=== PATIENT | male | born 1950 | race Caucasian/White ===

== ENCOUNTER 2019-11-21 13:42 | Emergency (ER) | payer MEDICARE, OTHER ==
[2019-11-21] MEDS ORDERED: Ondansetron 4 MG Tab.DIS PO PRN (14:03)
[2019-11-21] MEDS ORDERED: Meclizine 25 MG Tab PO ONE (14:03)
[2019-11-21 15:48] VITALS: BP 145/59; PULSE 72
--- NOTE | 2019-11-21 15:48 | EDM.PDOC ---
ED HPI GENERAL MEDICAL PROBLEM - General Stated Complaint: DIZZINES Time Seen by Provider: 11/21/19 14:35 Source of Information: Reports: Patient History Limitations: Reports: No Limitations - History of Present Illness INITIAL COMMENTS - FREE TEXT/NARRATIVE: Patient presented to the ED because of dizziness, nausea which he developed after mowing his lawn for almost 2 hours. He said he was drenching in sweats when he felt dizzy. Denies any palpitations, chest pain or headache. There is no fever or chills. - Related Data Allergies Allergy/AdvReac Type Severity Reaction Status Date / Time No Known Allergies Allergy Verified 11/21/19 15:46 Home Meds: Home Meds metFORMIN [Glucophage] 1 tab PO BID 12/15/14 [History] sitaGLIPtin Phosphate [Januvia] 1 tab PO DAILY 12/15/14 [History] Lisinopril/Hydrochlorothiazide [Lisinopril-Hctz 10-12.5 mg Tab] 1 tab PO DAILY 11/21/19 [History] Social & Family History - Living Situation & Occupation Living situation: Reports: Single Occupation: Employed ED ROS GENERAL - Review of Systems Review Of Systems: See Below Constitutional: Reports: No Symptoms HEENT: Reports: No Symptoms Respiratory: Reports: No Symptoms Cardiovascular: Reports: No Symptoms Endocrine: Reports: No Symptoms GI/Abdominal: Reports: No Symptoms : Reports: No Symptoms Musculoskeletal: Reports: No Symptoms Skin: Reports: No Symptoms Neurological: Reports: Dizziness ED EXAM, GENERAL - Physical Exam Exam: See Below Exam Limited By: No Limitations General Appearance: Alert, No Apparent Distress Ears: Normal External Exam, Normal Canal, Hearing Grossly Normal Nose: Normal Inspection, Normal Mucosa, No Blood Throat/Mouth: Normal Inspection, Normal Lips, Normal Teeth, Normal Gums Head: Atraumatic, Normocephalic Neck: Normal Inspection, Supple, Non-Tender, Full Range of Motion Respiratory/Chest: No Respiratory Distress, Lungs Clear, Normal Breath Sounds Cardiovascular: Normal Peripheral Pulses, Regular Rate, Rhythm, No Edema, No Gallop GI/Abdominal: Normal Bowel Sounds, Soft, Non-Tender, No Organomegaly Rectal (Males) Exam: Prostate Nodule Back Exam: Normal Inspection Extremities: Normal Inspection, Normal Range of Motion Neurological: Alert, Oriented, CN II-XII Intact, Normal Cognition, Normal Gait, Normal Reflexes, No Motor/Sensory Deficits Course - Vital Signs Text/Narrative:: Labs reviewed with patient Oral hydration Zofran ODT 4 mg po x1 Meclizine 25 mg po x1 Last Recorded V/S: Last Vital Signs Temp 36.6 C 11/21/19 14:30 Pulse 72 11/21/19 14:30 Resp 18 11/21/19 14:30 BP 145/59 H 11/21/19 14:30 Pulse Ox 96 11/21/19 14:30 - Orders/Labs/Meds Orders: Active Orders 24 hr Category Date Time Status EKG 12 Lead [EK] Routine Ther 11/21/19 14:03 Ordered Labs: Laboratory Tests 11/21/19 11/21/19 Range/Units 14:50 14:50 WBC 16.7 H (4.5-12.0) X10-3/uL RBC 4.96 (4.30-5.75) x10(6)uL Hgb 14.9 (13.5-17.8) g/dL Hct 44.5 (30.0-51.3) % MCV 89.8 (80-96) fL MCH 30.0 (27.7-33.6) pg MCHC 33.4 (32.2-35.4) g/dL RDW 12.5 (11.5-15.5) % Plt Count 241 (125-369) X10(3)uL MPV 8.6 (7.4-10.4) fL Add Manual Diff Yes Neutrophils % (Manual) 91 H (46-82) % Band Neutrophils % 2 (0-6) % Lymphocytes % (Manual) 5 L (13-37) % Monocytes % (Manual) 2 L (4-12) % Sodium 137 (135-145) mmol/L Potassium 4.0 (3.5-5.3) mmol/L Chloride 100 (100-110) mmol/L Carbon Dioxide 30 (21-32) mmol/L BUN 18 (7-18) mg/dL Creatinine 1.0 (0.70-1.30) mg/dL Est Cr Clr Drug Dosing TNP Estimated GFR (MDRD) > 60 (>60) BUN/Creatinine Ratio 18.0 (9-20) Glucose 174 H (80-116) mg/dL Calcium 9.8 (8.6-10.2) mg/dL Meds: Medications Discontinued Medications Generic Name Dose Route Start Last Admin Trade Name Freq PRN Reason Stop Dose Admin Meclizine HCl 25 mg 11/21/19 14:03 11/21/19 14:23 Antivert PO 11/21/19 14:04 25 mg ONETIME ONE Administration Ondansetron HCl 4 mg 11/21/19 14:03 11/21/19 14:23 Zofran Odt PO 4 mg ONETIME PRN Administration Nausea Departure - Departure Time of Disposition: 15:50 Disposition: Home, Self-Care 01 Condition: Good Clinical Impression: Heat exhaustion - Discharge Information Instructions: Preventing Heat Exhaustion, Adult Referrals: Nitish Duran MD [Primary Care Provider] - Forms: ED Department Discharge Additional Instructions: Please read discharge instructions on heat exhaustion Increase oral fluids at least 3-4 L a day Rest for the day Follow up as needed - My Orders Last 24 Hours: My Active Orders 11/21/19 14:03 EKG 12 Lead [EK] Routine - Assessment/Plan Last 24 Hours: My Active Orders 11/21/19 14:03 EKG 12 Lead [EK] Routine
== END 2019-11-21 16:00 | disposition home or self-care (01) ==
LOC: FB.ED 13:42
DX: T67.5XXA Heat exhaustion, unspecified, initial encounter (principal)
CPT/HCPCS: 36415; 80048; 85025; 93005; 99284-25; A9270-GY